=== PATIENT | female | born 1935 | race Caucasian/White ===

== ENCOUNTER 2016-10-03 07:58 | Outpatient (CLI) | payer MEDICARE, OTHER ==
[2016-10-03 09:26] LABS: #Basophils 0.1 thou/uL (0.0-0.2); #Eosinphils 0.3 thou/uL (0.0-0.7); #Lymphocytes 2.6 thou/uL (1.20-3.40); #Monocytes 0.5 thou/uL (0.11-0.59); #Neutrophils 2.6 thou/uL (1.40-6.50); %Basophils 1.4 % (0.0-1.0); %Eosinophils 5.2 % (0.0-10.0); %Lymphocytes 43.1 % (21.0-51.0); %Monocytes 7.7 % (0.0-10.0); %Neutrophils 42.5 % (42.0-75.0); Hemoglobin 11.9 g/dL (12.0-16.0); Mean Corpuscular HGB CONC 32.5 g/dL (32.0-36.0); Mean Corpuscular Hemoglobin 30.4 pg (27.0-31.0); Mean Corpuscular Volume 93.5 fl (81.0-99.0); Platelet Count 200 thou/uL (130-400); RBC Distribution Width 11.8 % (11.5-14.5); Red Blood Cell (RBC) Count 3.93 mill/uL (4.20-5.40); White Blood Cell (WBC) Count 6.1 thou/uL (4.8-10.8)
[2016-10-03 09:42] LABS: ALT (SGPT) 11 U/L (0-55); AST (SGOT) 15 U/L (5-34); Alkaline Phosphatase 70 U/L (40-150); Anion Gap 14 mmol/L (10-20); BUN (Urea Nitrogen) 23 mg/dL (9.8-20.1); Bilirubin, Total 0.4 mg/dL (0.2-1.2); Calc. Creatinine Clearance 0 mL/min (70-130); Calcium 9.4 mg/dL (7.8-10.44); Carbon Dioxide 25 mmol/L (23-31); Cardiac Risk 3.4 (Less than 4.5); Chloride 106 mmol/L (98-107); Cholesterol 159 mg/dL (< 200 Desired); Estimated GFR-MDRD 51; Glucose 109 mg/dL (83-110); HDL Cholesterol 47 mg/dL (>60 Neg Risk); LDL Cholesterol, Calculated 95 mg/dL; Potassium 4.8 mmol/L (3.5-5.1); Sodium 140 mmol/L (136-145); Triglycerides 83 mg/dL (Less than 150)
== END 2016-10-03 07:59 | disposition home or self-care (01) ==
LOC: NAVSJIPCSP 07:58
PROVIDERS: ATTEND Internal Medicine
DX: E78.5 Hyperlipidemia, unspecified (principal); I10 Essential (primary) hypertension
CPT/HCPCS: 80053; 80061; 83880; 84443; 85025

== ENCOUNTER 2016-10-06 09:52 | Outpatient (CLI) | payer MEDICARE, OTHER ==
[2016-10-06 12:03] LABS: Bilirubin Negative (Negative); Blood, Urine Negative (Negative); Clarity Clear (Clear); Glucose, Urine (Dipstick) Negative (Negative); Nitrite Negative (Negative); Protein, Urine (Dipstick) Negative (Neg-Trace); Specific Gravity, Urine 1.015 (1.005-1.030); Urobilinogen 0.2 mg/dL (0.2-1.0); pH, Urine 6.5 (5.0-9.0)
[2016-10-06 12:04] LABS: Leukocyte Negative (Negative)
== END 2016-10-06 09:53 | disposition home or self-care (01) ==
LOC: NAV LABSP 09:52
PROVIDERS: ATTEND Internal Medicine
DX: E78.5 Hyperlipidemia, unspecified (principal); I10 Essential (primary) hypertension
CPT/HCPCS: 81003

== ENCOUNTER 2017-01-01 13:45 | Outpatient (CLI) | payer MEDICARE, OTHER ==
[2017-01-01 14:06] LABS: Anion Gap 18 mmol/L (10-20); BUN (Urea Nitrogen) 22 mg/dL (9.8-20.1); Calc. Creatinine Clearance 0 mL/min (70-130); Calcium 9.6 mg/dL (7.8-10.44); Carbon Dioxide 22 mmol/L (23-31); Chloride 104 mmol/L (98-107); Estimated GFR-MDRD 37; Glucose 92 mg/dL (83-110); Potassium 4.9 mmol/L (3.5-5.1); Sodium 139 mmol/L (136-145)
== END 2017-01-01 13:46 | disposition home or self-care (01) ==
LOC: NAVSJIPCSP 13:45
PROVIDERS: ATTEND Internal Medicine
DX: I48.91 Unspecified atrial fibrillation (principal)
CPT/HCPCS: 36415; 80048; 83880

== ENCOUNTER 2017-03-31 13:48 | Outpatient (CLI) | payer MEDICARE, OTHER ==
--- NOTE | 2017-03-31 16:15 | RAD ---
CHEST PA AND LATERAL: 03/31/17 HISTORY: 81-year-old female with high blood pressure and chronic allergic rhinitis with shortness of breath. COMPARISON: 12/20/15. FINDINGS: Heart size is within normal limits. Left ICD. Multiple healed right rib fractures although they are new from the prior study. There is a stable mild compression of what appears to be T7. There is appr oximately 50% or slightly greater vertical height loss of what appears to be T8 which is new from e 12/20/15 study but still has more of an old appearance on this study. No confluent pneumonia or over t edema. No pleural effusion. There is some levoscoliosis of the upper lumbar, lower thoracic verteb ral column. IMPRESSION: Left ICA. Stable appearing chest. Healed rib fractures and T8 compression fracture which appear old and healed but are new from the 12/20/15 study. POS: OFF
== END 2017-03-31 13:49 | disposition home or self-care (01) ==
LOC: NAV RAD 13:48
PROVIDERS: ATTEND Internal Medicine
DX: J30.1 Allergic rhinitis due to pollen (principal); I10 Essential (primary) hypertension
CPT/HCPCS: 71020

== ENCOUNTER 2017-09-22 17:14 | Outpatient (CLI) | payer MEDICARE, BC ==
--- NOTE | 2017-09-22 19:02 | CT ---
CERVICAL SPINE CT NONCONTRAST: 09/22/17 INDICATION: Pain, 82-year-old female. FINDINGS: Motion artifact is present which degrades image quality and thus limits evaluation. There is grade I spondylolisthesis of C4 on C5 and C7 on T1. Multilevel prominent bilateral facet osteoarthritis is pr esent. No acute compression fracture. No evidence of craniocervical distraction injury. There is prom inent degenerative hypertrophy at the atlantoaxial and atlantodental articulation. No obvious acute f racture. IMPRESSION: Prominent degenerative change of the cervical spine without acute fracture identified. Evaluation is limited by the degree of patient motion. POS: [facility]
== END 2017-09-22 17:15 | disposition home or self-care (01) ==
LOC: NAV RAD 17:14
PROVIDERS: ATTEND Internal Medicine
DX: M47.22 Other spondylosis with radiculopathy, cervical region (principal)
CPT/HCPCS: 72125

== ENCOUNTER 2022-02-24 16:18 | Outpatient (CLI) | payer MEDICARE, BC | END 2022-02-24 16:19 | disposition home or self-care (01) | LOC: NAV RAD 16:18 | PROVIDERS: ATTEND Family Medicine | DX: M54.32 Sciatica, left side (principal); M47.816 Spondylosis without myelopathy or radiculopathy, lumbar region; M43.9 Deforming dorsopathy, unspecified | CPT/HCPCS: 72100 ==

== ENCOUNTER 2022-11-24 16:37 | Emergency (ER) | payer MEDICARE ==
[2022-11-24] MEDS ORDERED: traMADol HCl 50 MG TAB ONE (16:57)
[2022-11-24] MEDS ORDERED: Ondansetron ODT 4 MG TAB ONE (19:45)
== END 2022-11-24 19:50 | disposition home or self-care (01) ==
LOC: NAV ERS 16:37
DX: S32.511A Fracture of superior rim of right pubis, initial encounter for closed fracture (principal); S80.211A Abrasion, right knee, initial encounter; W19.XXXA Unspecified fall, initial encounter
CPT/HCPCS: 72100; Q0162

== ENCOUNTER 2022-11-28 11:20 | Inpatient (IN) | payer MEDICARE ==
[2022-11-28] MEDS ORDERED: Bisacodyl 5 MG TAB PO PRN (17:39)
[2022-11-28] MEDS ORDERED: Ondansetron ODT 4 MG TAB SL PRN (17:39)
[2022-11-28] MEDS ORDERED: Senokot S 8.6-50 MG TAB PO PRN (17:39)
[2022-11-28] MEDS ORDERED: traMADol HCl 50 MG TAB PO PRN (18:18)
[2022-11-28] MEDS: Acetaminophen 500 MG TAB PO SCH ×2 (18:31→23:47)
[2022-11-28] MEDS: Dicyclomine 20 MG TAB PO SCH (21:16)
[2022-11-28] MEDS: Montelukast Sodium 10 mg Tablet PO SCH (21:16)
[2022-11-28] MEDS: Simvastatin 10 MG TAB PO SCH (21:16)
[2022-11-29 05:25] LABS: #Basophils 0.1 thou/uL (0.0-0.2); #Eosinphils 0.2 thou/uL (0.0-0.7); #Lymphocytes 1.3 thou/uL (1.20-3.40); #Monocytes 0.7 thou/uL (0.11-0.59); #Neutrophils 5.2 thou/uL (1.40-6.50); %Basophils 1.1 % (0.0-1.0); %Lymphocytes 17.6 % (21.0-51.0); %Monocytes 9.8 % (0.0-10.0); %Neutrophils 68.6 % (42.0-75.0); Hemoglobin 10.2 g/dL (12.0-16.0); Mean Corpuscular HGB CONC 31.9 g/dL (32.0-36.0); Mean Corpuscular Hemoglobin 27.4 pg (27.0-31.0); Mean Corpuscular Volume 85.8 fl (78.0-98.0); Mean Platelet Volume 6.9 fL (7.4-10.4); Platelet Count 148 10x3/uL (130-400); RBC Distribution Width 14.4 % (11.5-14.5); Red Blood Cell (RBC) Count 3.75 mill/uL (4.20-5.40); White Blood Cell (WBC) Count 7.6 10x3/uL (4.8-10.8)
[2022-11-29 05:49] LABS: ALT (SGPT) 12 U/L (8-55); AST (SGOT) 21 U/L (5-34); Albumin 3.4 g/dL (3.4-4.8); Alkaline Phosphatase 62 U/L (40-110); Anion Gap 14 mmol/L (10-20); BUN (Urea Nitrogen) 14 mg/dL (9.8-20.1); Bilirubin, Total 0.9 mg/dL (0.2-1.2); Calc. Creatinine Clearance 45 mL/min (70-130); Calcium 9.3 mg/dL (7.8-10.44); Carbon Dioxide 23 mmol/L (23-31); Chloride 106 mmol/L (98-107); Estimated GFR 73; Globulin 3.2 g/dL (2.4-3.5); Glucose 105 mg/dL (83-110); Potassium 3.9 mmol/L (3.5-5.1); Protein, Total 6.6 g/dL (5.8-8.1); Sodium 139 mmol/L (136-145)
[2022-11-29] MEDS: Acetaminophen 500 MG TAB PO SCH ×4 (05:59→23:49)
[2022-11-29] MEDS: Levothyroxine 150 MCG TAB PO SCH (05:59)
[2022-11-29] MEDS: Furosemide 40 MG TAB PO SCH (08:28)
[2022-11-29] MEDS: Lisinopril 10 MG TAB PO SCH (08:29)
[2022-11-29] MEDS: Ferrous Sulfate 325 MG TAB PO SCH (08:29)
[2022-11-29] MEDS: Ascorbic Acid 500 mg Chewable Tablet PO SCH (08:29)
[2022-11-29] MEDS: Dicyclomine 20 MG TAB PO SCH ×3 (08:29→21:06)
[2022-11-29] MEDS: Montelukast Sodium 10 mg Tablet PO SCH (21:06)
[2022-11-29] MEDS: Simvastatin 10 MG TAB PO SCH (21:06)
[2022-11-30] MEDS: Acetaminophen 500 MG TAB PO SCH ×3 (05:51→17:27)
[2022-11-30] MEDS: Levothyroxine 150 MCG TAB PO SCH (05:51)
[2022-11-30] MEDS: Lisinopril 10 MG TAB PO SCH (08:51)
[2022-11-30] MEDS: Dicyclomine 20 MG TAB PO SCH ×3 (08:51→20:38)
[2022-11-30] MEDS: Furosemide 40 MG TAB PO SCH (08:52)
[2022-11-30] MEDS: Ascorbic Acid 500 mg Chewable Tablet PO SCH (08:52)
[2022-11-30] MEDS: Ferrous Sulfate 325 MG TAB PO SCH (08:52)
[2022-11-30] MEDS ORDERED: Lisinopril 10 MG TAB PO SCH (13:00)
[2022-11-30] MEDS: Montelukast Sodium 10 mg Tablet PO SCH (20:38)
[2022-11-30] MEDS: Simvastatin 10 MG TAB PO SCH (20:38)
[2022-11-30] MEDS: Apixaban 2.5 MG TAB PO SCH (20:39)
[2022-12-01] MEDS: Acetaminophen 500 MG TAB PO SCH ×4 (00:21→17:31)
[2022-12-01] MEDS: Levothyroxine 150 MCG TAB PO SCH (05:37)
[2022-12-01 06:10] LABS: #Basophils 0.1 thou/uL (0.0-0.2); #Eosinphils 0.3 thou/uL (0.0-0.7); #Lymphocytes 1.3 thou/uL (1.20-3.40); #Monocytes 0.7 thou/uL (0.11-0.59); #Neutrophils 5.3 thou/uL (1.40-6.50); %Basophils 1.3 % (0.0-1.0); %Eosinophils 3.4 % (0.0-10.0); %Lymphocytes 16.7 % (21.0-51.0); %Monocytes 9.2 % (0.0-10.0); %Neutrophils 69.3 % (42.0-75.0); Hemoglobin 10.5 g/dL (12.0-16.0); Mean Corpuscular HGB CONC 31.4 g/dL (32.0-36.0); Mean Corpuscular Hemoglobin 27.3 pg (27.0-31.0); Mean Corpuscular Volume 86.8 fl (78.0-98.0); Mean Platelet Volume 6.3 fL (7.4-10.4); Platelet Count 182 10x3/uL (130-400); RBC Distribution Width 15.8 % (11.5-14.5); Red Blood Cell (RBC) Count 3.84 mill/uL (4.20-5.40); White Blood Cell (WBC) Count 7.7 10x3/uL (4.8-10.8)
[2022-12-01] MEDS: Ferrous Sulfate 325 MG TAB PO SCH (08:24)
[2022-12-01] MEDS: Dicyclomine 20 MG TAB PO SCH ×3 (08:25→20:39)
[2022-12-01] MEDS: Lisinopril 20 MG TAB PO SCH (08:25)
[2022-12-01] MEDS: Furosemide 40 MG TAB PO SCH (08:25)
[2022-12-01] MEDS: Apixaban 2.5 MG TAB PO SCH ×2 (08:25→20:39)
[2022-12-01] MEDS: Ascorbic Acid 500 mg Chewable Tablet PO SCH (08:25)
[2022-12-01] MEDS: Montelukast Sodium 10 mg Tablet PO SCH (20:39)
[2022-12-01] MEDS: Simvastatin 10 MG TAB PO SCH (20:39)
[2022-12-02] MEDS: Levothyroxine 150 MCG TAB PO SCH (05:35)
[2022-12-02] MEDS: Acetaminophen 500 MG TAB PO SCH ×4 (05:35→17:39)
[2022-12-02] MEDS: Ferrous Sulfate 325 MG TAB PO SCH (08:12)
[2022-12-02] MEDS: Ascorbic Acid 500 mg Chewable Tablet PO SCH (08:13)
[2022-12-02] MEDS: Apixaban 2.5 MG TAB PO SCH ×2 (08:13→21:24)
[2022-12-02] MEDS: Furosemide 40 MG TAB PO SCH (08:13)
[2022-12-02] MEDS: Lisinopril 20 MG TAB PO SCH (08:13)
[2022-12-02] MEDS: Dicyclomine 20 MG TAB PO SCH ×3 (08:14→21:24)
[2022-12-02] MEDS: Montelukast Sodium 10 mg Tablet PO SCH (21:24)
[2022-12-02] MEDS: Simvastatin 10 MG TAB PO SCH (21:25)
[2022-12-03] MEDS: Acetaminophen 500 MG TAB PO SCH ×4 (00:32→17:47)
[2022-12-03] MEDS: Levothyroxine 150 MCG TAB PO SCH (05:15)
[2022-12-03] MEDS: Ferrous Sulfate 325 MG TAB PO SCH (09:49)
[2022-12-03] MEDS: Dicyclomine 20 MG TAB PO SCH ×3 (09:49→21:00)
[2022-12-03] MEDS: Furosemide 40 MG TAB PO SCH (09:50)
[2022-12-03] MEDS: Apixaban 2.5 MG TAB PO SCH ×2 (09:50→20:59)
[2022-12-03] MEDS: Ascorbic Acid 500 mg Chewable Tablet PO SCH (09:50)
[2022-12-03] MEDS: Lisinopril 20 MG TAB PO SCH (09:50)
[2022-12-03] MEDS ORDERED: Ibuprofen 200 MG TAB PO SCH (18:00)
[2022-12-03] MEDS: Montelukast Sodium 10 mg Tablet PO SCH (20:59)
[2022-12-03] MEDS: Simvastatin 10 MG TAB PO SCH (21:00)
[2022-12-04] MEDS: Acetaminophen 500 MG TAB PO SCH ×5 (00:21→22:42)
[2022-12-04 06:05] LABS: #Basophils 0.1 thou/uL (0.0-0.2); #Eosinphils 0.3 thou/uL (0.0-0.7); #Lymphocytes 1.3 thou/uL (1.20-3.40); #Monocytes 0.6 thou/uL (0.11-0.59); #Neutrophils 4.4 thou/uL (1.40-6.50); %Basophils 1.3 % (0.0-1.0); %Eosinophils 4.5 % (0.0-10.0); %Lymphocytes 18.9 % (21.0-51.0); %Monocytes 9.3 % (0.0-10.0); Hemoglobin 10.1 g/dL (12.0-16.0); Mean Corpuscular HGB CONC 30.5 g/dL (32.0-36.0); Mean Corpuscular Hemoglobin 27.4 pg (27.0-31.0); Mean Corpuscular Volume 89.5 fl (78.0-98.0); Mean Platelet Volume 5.6 fL (7.4-10.4); Platelet Count 266 10x3/uL (130-400); RBC Distribution Width 17.4 % (11.5-14.5); Red Blood Cell (RBC) Count 3.71 mill/uL (4.20-5.40); White Blood Cell (WBC) Count 6.7 10x3/uL (4.8-10.8)
[2022-12-04] MEDS: Levothyroxine 150 MCG TAB PO SCH (06:08)
[2022-12-04 06:24] LABS: Anion Gap 12 mmol/L (10-20); BUN (Urea Nitrogen) 15 mg/dL (9.8-20.1); Calc. Creatinine Clearance 40 mL/min (70-130); Calcium 8.9 mg/dL (7.8-10.44); Carbon Dioxide 26 mmol/L (23-31); Chloride 104 mmol/L (98-107); Estimated GFR 67; Glucose 110 mg/dL (83-110); Potassium 3.4 mmol/L (3.5-5.1); Sodium 139 mmol/L (136-145)
[2022-12-04] MEDS: Ferrous Sulfate 325 MG TAB PO SCH (07:51)
[2022-12-04] MEDS: Furosemide 40 MG TAB PO SCH (07:51)
[2022-12-04] MEDS: Lisinopril 20 MG TAB PO SCH (07:51)
[2022-12-04] MEDS: Dicyclomine 20 MG TAB PO SCH ×3 (07:52→20:53)
[2022-12-04] MEDS: Ascorbic Acid 500 mg Chewable Tablet PO SCH (07:52)
[2022-12-04] MEDS: Apixaban 2.5 MG TAB PO SCH ×2 (07:52→20:53)
[2022-12-04] MEDS ORDERED: Ibuprofen 400 MG TAB PO PRN (18:04)
[2022-12-04] MEDS ORDERED: Potassium Chloride 20 MEQ TAB PO SCH (18:15)
[2022-12-04] MEDS: Montelukast Sodium 10 mg Tablet PO SCH (20:53)
[2022-12-04] MEDS: Simvastatin 10 MG TAB PO SCH (20:54)
[2022-12-05] MEDS: Acetaminophen 500 MG TAB PO SCH ×3 (05:28→17:17)
[2022-12-05] MEDS: Levothyroxine 150 MCG TAB PO SCH (05:28)
[2022-12-05] MEDS: Ascorbic Acid 500 mg Chewable Tablet PO SCH (08:19)
[2022-12-05] MEDS: Ferrous Sulfate 325 MG TAB PO SCH (08:19)
[2022-12-05] MEDS: Furosemide 40 MG TAB PO SCH (08:19)
[2022-12-05] MEDS: Dicyclomine 20 MG TAB PO SCH ×3 (08:19→22:02)
[2022-12-05] MEDS: Apixaban 2.5 MG TAB PO SCH ×2 (08:19→22:02)
[2022-12-05] MEDS: Lisinopril 20 MG TAB PO SCH (08:20)
[2022-12-05] MEDS: Ibuprofen 200 MG TAB PO PRN ×2 (10:22→22:00)
[2022-12-05] MEDS: Simvastatin 10 MG TAB PO SCH (22:00)
[2022-12-05] MEDS: Montelukast Sodium 10 mg Tablet PO SCH (22:02)
[2022-12-06] MEDS: Acetaminophen 500 MG TAB PO SCH ×4 (00:42→17:39)
[2022-12-06] MEDS: Levothyroxine 150 MCG TAB PO SCH (05:19)
[2022-12-06 05:43] LABS: Anion Gap 10 mmol/L (10-20); BUN (Urea Nitrogen) 17 mg/dL (9.8-20.1); Calc. Creatinine Clearance 36 mL/min (70-130); Calcium 8.9 mg/dL (7.8-10.44); Chloride 106 mmol/L (98-107); Estimated GFR 60; Glucose 118 mg/dL (83-110); Potassium 3.3 mmol/L (3.5-5.1); Sodium 139 mmol/L (136-145)
[2022-12-06 05:47] LABS: Carbon Dioxide 26 mmol/L (23-31)
[2022-12-06] MEDS: Lisinopril 20 MG TAB PO SCH (09:27)
[2022-12-06] MEDS: Furosemide 40 MG TAB PO SCH (09:27)
[2022-12-06] MEDS: Dicyclomine 20 MG TAB PO SCH ×3 (09:28→20:46)
[2022-12-06] MEDS: Ascorbic Acid 500 mg Chewable Tablet PO SCH (09:28)
[2022-12-06] MEDS: Ferrous Sulfate 325 MG TAB PO SCH (09:28)
[2022-12-06] MEDS: Apixaban 2.5 MG TAB PO SCH ×2 (09:29→20:46)
[2022-12-06] MEDS: Ibuprofen 200 MG TAB PO PRN (10:08)
[2022-12-06] MEDS ORDERED: Potassium Chloride 20 MEQ TAB PO SCH (12:15)
[2022-12-06] MEDS: Simvastatin 10 MG TAB PO SCH (20:45)
[2022-12-06] MEDS: Montelukast Sodium 10 mg Tablet PO SCH (20:45)
[2022-12-07] MEDS: Ibuprofen 200 MG TAB PO PRN ×2 (00:11→22:59)
[2022-12-07] MEDS: Acetaminophen 500 MG TAB PO SCH ×5 (00:14→22:59)
[2022-12-07] MEDS: Levothyroxine 150 MCG TAB PO SCH (06:10)
[2022-12-07 06:44] LABS: Anion Gap 13 mmol/L (10-20); BUN (Urea Nitrogen) 17 mg/dL (9.8-20.1); Calc. Creatinine Clearance 32 mL/min (70-130); Calcium 8.9 mg/dL (7.8-10.44); Carbon Dioxide 25 mmol/L (23-31); Chloride 105 mmol/L (98-107); Estimated GFR 53; Glucose 95 mg/dL (83-110); Potassium 3.9 mmol/L (3.5-5.1); Sodium 139 mmol/L (136-145)
[2022-12-07] MEDS: Apixaban 2.5 MG TAB PO SCH ×2 (07:52→20:36)
[2022-12-07] MEDS: Ferrous Sulfate 325 MG TAB PO SCH (07:53)
[2022-12-07] MEDS: Ascorbic Acid 500 mg Chewable Tablet PO SCH (07:53)
[2022-12-07] MEDS: Furosemide 40 MG TAB PO SCH (07:53)
[2022-12-07] MEDS: Dicyclomine 20 MG TAB PO SCH ×3 (07:53→20:36)
[2022-12-07] MEDS: Lisinopril 20 MG TAB PO SCH (07:54)
[2022-12-07] MEDS: Simvastatin 10 MG TAB PO SCH (20:36)
[2022-12-07] MEDS: Montelukast Sodium 10 mg Tablet PO SCH (20:36)
[2022-12-08] MEDS: Levothyroxine 150 MCG TAB PO SCH (05:38)
[2022-12-08] MEDS: Acetaminophen 500 MG TAB PO SCH ×3 (05:38→18:10)
[2022-12-08] MEDS: Ascorbic Acid 500 mg Chewable Tablet PO SCH (08:55)
[2022-12-08] MEDS: Ferrous Sulfate 325 MG TAB PO SCH (08:55)
[2022-12-08] MEDS: Furosemide 40 MG TAB PO SCH (08:55)
[2022-12-08] MEDS: Apixaban 2.5 MG TAB PO SCH ×2 (08:56→20:15)
[2022-12-08] MEDS: Dicyclomine 20 MG TAB PO SCH ×3 (08:56→20:15)
[2022-12-08] MEDS: Lisinopril 20 MG TAB PO SCH (08:56)
[2022-12-08] MEDS: Ibuprofen 200 MG TAB PO PRN (20:15)
[2022-12-08] MEDS: Montelukast Sodium 10 mg Tablet PO SCH (20:15)
[2022-12-08] MEDS: Simvastatin 10 MG TAB PO SCH (20:15)
[2022-12-09] MEDS: Acetaminophen 500 MG TAB PO SCH ×4 (04:15→17:26)
[2022-12-09] MEDS: Levothyroxine 150 MCG TAB PO SCH (05:44)
[2022-12-09] MEDS: Apixaban 2.5 MG TAB PO SCH ×2 (08:02→20:29)
[2022-12-09] MEDS: Ferrous Sulfate 325 MG TAB PO SCH (08:02)
[2022-12-09] MEDS: Ibuprofen 200 MG TAB PO PRN ×2 (08:03→20:30)
[2022-12-09] MEDS: Furosemide 40 MG TAB PO SCH (08:04)
[2022-12-09] MEDS: Lisinopril 20 MG TAB PO SCH (08:04)
[2022-12-09] MEDS: Dicyclomine 20 MG TAB PO SCH ×3 (08:05→20:29)
[2022-12-09] MEDS: Ascorbic Acid 500 mg Chewable Tablet PO SCH (08:05)
[2022-12-09] MEDS: Simvastatin 10 MG TAB PO SCH (20:30)
[2022-12-09] MEDS: Montelukast Sodium 10 mg Tablet PO SCH (20:30)
[2022-12-10] MEDS: Acetaminophen 500 MG TAB PO SCH ×5 (00:40→23:56)
[2022-12-10] MEDS: Levothyroxine 150 MCG TAB PO SCH (05:12)
[2022-12-10] MEDS: Lisinopril 20 MG TAB PO SCH (07:56)
[2022-12-10] MEDS: Ferrous Sulfate 325 MG TAB PO SCH (07:56)
[2022-12-10] MEDS: Dicyclomine 20 MG TAB PO SCH ×3 (07:56→22:38)
[2022-12-10] MEDS: Furosemide 40 MG TAB PO SCH (07:57)
[2022-12-10] MEDS: Apixaban 2.5 MG TAB PO SCH ×2 (07:57→22:38)
[2022-12-10] MEDS: Ascorbic Acid 500 mg Chewable Tablet PO SCH (07:57)
[2022-12-10] MEDS: Simvastatin 10 MG TAB PO SCH (22:39)
[2022-12-10] MEDS: Montelukast Sodium 10 mg Tablet PO SCH (22:39)
[2022-12-11] MEDS: Acetaminophen 500 MG TAB PO SCH ×3 (05:20→17:27)
[2022-12-11] MEDS: Levothyroxine 150 MCG TAB PO SCH (05:21)
[2022-12-11 05:32] LABS: #Basophils 0.1 thou/uL (0.0-0.2); #Monocytes 0.5 thou/uL (0.11-0.59); #Neutrophils 8.8 thou/uL (1.40-6.50); %Basophils 0.7 % (0.0-1.0); %Eosinophils 0.2 % (0.0-10.0); %Lymphocytes 9.5 % (21.0-51.0); %Monocytes 4.7 % (0.0-10.0); %Neutrophils 84.9 % (42.0-75.0); Hemoglobin 10.7 g/dL (12.0-16.0); Mean Corpuscular HGB CONC 30.5 g/dL (32.0-36.0); Mean Corpuscular Volume 92.1 fl (78.0-98.0); Mean Platelet Volume 5.5 fL (7.4-10.4); Platelet Count 358 10x3/uL (130-400); RBC Distribution Width 17.9 % (11.5-14.5); Red Blood Cell (RBC) Count 3.83 mill/uL (4.20-5.40); White Blood Cell (WBC) Count 10.3 10x3/uL (4.8-10.8)
[2022-12-11 05:40] LABS: Anion Gap 11 mmol/L (10-20); BUN (Urea Nitrogen) 17 mg/dL (9.8-20.1); Calc. Creatinine Clearance 38 mL/min (70-130); Calcium 9.1 mg/dL (7.8-10.44); Carbon Dioxide 26 mmol/L (23-31); Chloride 105 mmol/L (98-107); Estimated GFR 63; Glucose 123 mg/dL (83-110); Potassium 3.9 mmol/L (3.5-5.1); Sodium 138 mmol/L (136-145)
[2022-12-11] MEDS: Lisinopril 20 MG TAB PO SCH (09:25)
[2022-12-11] MEDS: Ascorbic Acid 500 mg Chewable Tablet PO SCH (09:25)
[2022-12-11] MEDS: Dicyclomine 20 MG TAB PO SCH ×3 (09:25→21:29)
[2022-12-11] MEDS: Ferrous Sulfate 325 MG TAB PO SCH (09:26)
[2022-12-11] MEDS: Furosemide 40 MG TAB PO SCH (09:26)
[2022-12-11] MEDS: Apixaban 2.5 MG TAB PO SCH ×2 (09:26→21:29)
[2022-12-11 11:03] VITALS: BMI 23.6
[2022-12-11] MEDS: Ibuprofen 200 MG TAB PO PRN (12:51)
[2022-12-11] MEDS: Montelukast Sodium 10 mg Tablet PO SCH (21:29)
[2022-12-11] MEDS: Simvastatin 10 MG TAB PO SCH (21:29)
[2022-12-12] MEDS: Acetaminophen 500 MG TAB PO SCH ×3 (04:14→12:06)
[2022-12-12] MEDS: Levothyroxine 150 MCG TAB PO SCH (06:03)
[2022-12-12 08:12] VITALS: BP 122/68; TEMP 97.4
[2022-12-12] MEDS: Apixaban 2.5 MG TAB PO SCH (09:03)
[2022-12-12] MEDS: Ferrous Sulfate 325 MG TAB PO SCH (09:04)
[2022-12-12] MEDS: Ascorbic Acid 500 mg Chewable Tablet PO SCH (09:04)
[2022-12-12] MEDS: Furosemide 40 MG TAB PO SCH (09:04)
[2022-12-12] MEDS: Lisinopril 20 MG TAB PO SCH (09:04)
[2022-12-12] MEDS: Dicyclomine 20 MG TAB PO SCH ×2 (09:04→14:13)
[2022-12-12] MEDS: Ibuprofen 200 MG TAB PO PRN (13:43)
== END 2022-12-12 14:25 | disposition home health service (06) | DRG 561 ==
LOC: NAV ACUTE 17:45
PROVIDERS: ADMIT Family Medicine; ATTEND Family Medicine
DX: S32.501D Unspecified fracture of right pubis, subsequent encounter for fracture with routine healing (principal); S32.10XD Unspecified fracture of sacrum, subsequent encounter for fracture with routine healing; E03.9 Hypothyroidism, unspecified; I48.91 Unspecified atrial fibrillation; I12.9 Hypertensive chronic kidney disease with stage 1 through stage 4 chronic kidney disease, or unspecified chronic kidney disease; K21.9 Gastro-esophageal reflux disease without esophagitis; K59.00 Constipation, unspecified; G43.909 Migraine, unspecified, not intractable, without status migrainosus; S30.23XA Contusion of vagina and vulva, initial encounter; R53.81 Other malaise; N18.2 Chronic kidney disease, stage 2 (mild); E87.6 Hypokalemia; G89.29 Other chronic pain; S30.0XXA Contusion of lower back and pelvis, initial encounter; M54.9 Dorsalgia, unspecified; Z90.710 Acquired absence of both cervix and uterus; Z79.01 Long term (current) use of anticoagulants; Z98.890 Other specified postprocedural states; Z95.0 Presence of cardiac pacemaker; Z88.0 Allergy status to penicillin; Z86.73 Personal history of transient ischemic attack (TIA), and cerebral infarction without residual deficits; Z88.2 Allergy status to sulfonamides; Z88.8 Allergy status to other drugs, medicaments and biological substances; Z79.890 Hormone replacement therapy; Z79.899 Other long term (current) drug therapy
CPT/HCPCS: 36415; 80048; 80053; 85025; Q0162